=== PATIENT | male | born 2000 | race Two or more races ===

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

== ENCOUNTER 2019-04-02 14:50 | Emergency (ER) | payer MEDICAID ==
[2019-04-02] MEDS ORDERED: KETOROLAC TROMETHAMINE 60 MG/2 ML SDV IM ONE (15:44)
[2019-04-02] MEDS ORDERED: LIDOCAINE 5% (700 MG) TRANSDERMAL ADH..PATCH TP ONE (15:44)
--- NOTE | 2019-04-02 15:46 | ER Document Report ---
ED Medical Screen (RME) - General Chief Complaint: Back Pain Stated Complaint: BACK PAIN Time Seen by Provider: 04/02/19 15:39 Notes: Patient is a 18-year-old male who presents emergency department with a chief complaint of back pain. His pain started yesterday and he states it felt like he had pulled a muscle. 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 He denies any numbness or tingling. Denies any IV drug abuse. Denies any injury. Patient states that he dances a lot and sometimes gets back pain. He attempted to take naproxen which did help, but continues to have pain. Denies bladder or bowel incontinence. Exam: Tender mid back around paraspinous muscles. I have greeted and performed a rapid initial assessment of this patient. A comprehensive ED assessment and evaluation of the patient, analysis of test results and completion of medical decision making process will be conducted by an additional ED providers. TRAVEL OUTSIDE OF THE [place] IN LAST 30 DAYS: No - Related Data Allergies/Adverse Reactions: No Known Allergies Allergy (Verified 04/02/19 15:39) Past Medical History - Social History Chew tobacco use (# tins/day): No Frequency of alcohol use: Rare Drug Abuse: None Pulmonary Medical History: Reports: Hx Asthma Renal/ Medical History: Denies: Hx Peritoneal Dialysis - Immunizations Immunizations up to date: Yes Physical Exam - Vital signs Vitals: Temp Pulse Resp BP Pulse Ox 98.7 F 69 20 132/69 H 97 04/02/19 15:10 04/02/19 15:10 04/02/19 15:10 04/02/19 15:10 04/02/19 15:10 Course - Vital Signs Vital signs: Temp Pulse Resp BP Pulse Ox 98.7 F 69 20 132/69 H 97 04/02/19 15:10 04/02/19 15:10 04/02/19 15:10 04/02/19 15:10 04/02/19 15:10
--- NOTE | 2019-04-02 17:16 | ER Document Report ---
ED Neck/Back Problem - General Chief Complaint: Back Pain Stated Complaint: BACK PAIN Time Seen by Provider: 04/02/19 15:39 Primary Care Provider: [facility] [Provider Group] - Follow up in 1 week TRAVEL OUTSIDE OF THE [place] IN LAST 30 DAYS: No - HPI Notes: 18-year-old male to the emergency department with complaints of midthoracic back pain that began yesterday and is gotten worse. 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 He states that yesterday he was also dancing "hard" for about 1 hour. He states that his pain started after that. States it hurts more with big movements and big deep breath. He denies any nausea or vomiting. He states he has been getting some relief with the Toradol and Lidoderm patch applied in triage. He denies any numbness and tingling in his arms or in his legs. He denies any saddle paresthesia, fevers, bladder bowel incontinence, radiculopathy, weakness, IV drug abuse. - Related Data Allergies/Adverse Reactions: No Known Allergies Allergy (Verified 04/02/19 15:39) Past Medical History - General Information source: Patient - Social History Smoking Status: Never Smoker Chew tobacco use (# tins/day): No Frequency of alcohol use: Rare Drug Abuse: None Family History: Reviewed & Not Pertinent Patient has suicidal ideation: No Patient has homicidal ideation: No Pulmonary Medical History: Reports: Hx Asthma Renal/ Medical History: Denies: Hx Peritoneal Dialysis - Immunizations Immunizations up to date: Yes Review of Systems - Review of Systems Constitutional: denies: Chills, Fever EENT: No symptoms reported Cardiovascular: denies: Chest pain, Palpitations, Orthopnea, Dyspnea, Syncope, Dizziness, Lightheaded Respiratory: denies: Cough, Short of breath Gastrointestinal: denies: Abdominal pain, Diarrhea, Nausea, Vomiting Genitourinary: denies: Frequency, Flank pain, Incontinence, Retention Musculoskeletal: See HPI, Back pain Neurological/Psychological: No symptoms reported -: Yes All other systems reviewed and negative Physical Exam - Vital signs Vitals: Temp Pulse Resp BP Pulse Ox 98.7 F 69 20 132/69 H 97 04/02/19 15:10 04/02/19 15:10 04/02/19 15:10 04/02/19 15:10 04/02/19 15:10 Interpretation: Normal - General General appearance: Appears well, Alert - HEENT Head: Normocephalic, Atraumatic Eyes: Normal Pupils: PERRL - Respiratory Respiratory status: No respiratory distress Chest status: Nontender Breath sounds: Normal Chest palpation: Normal - Cardiovascular Rhythm: Regular Heart sounds: Normal auscultation Murmur: No - Back Back: Tender - there is TTP over the mid thoracic spine with noted paraspinal spasm. there is no midline TTP, there is no step off or deformity., CVA tenderness - Extremities General upper extremity: Normal inspection, Nontender, Normal color, Normal ROM, Normal temperature General lower extremity: Normal inspection, Nontender, Normal color, Normal ROM, Normal temperature, Normal weight bearing - Neurological Neuro grossly intact: Yes Cognition: Normal Orientation: AAOx4 [place] Coma Scale Eye Opening: Spontaneous [place] Coma Scale Verbal: Oriented [place] Coma Scale Motor: Obeys Commands [place] Coma Scale Total: 15 Speech: Normal Cranial nerves: Normal Cerebellar coordination: Normal. No: Gait ataxia Motor strength normal: LUE, RUE, LLE, RLE Sensory: Normal - Psychological Associated symptoms: Normal affect, Normal mood - Skin Skin Temperature: Warm Skin Moisture: Dry Skin Color: Normal Course - Re-evaluation Re-evalutation: Impression: Thoracic strain. Will send home with muscle relaxants and pain meds. Encouraged gentle stretching and applying heat. Encouraged to return if worse. Patient agrees with the plan. - Vital Signs Vital signs: Temp Pulse Resp BP Pulse Ox 97.9 F 65 18 135/73 H 100 04/02/19 17:40 04/02/19 17:40 04/02/19 17:40 04/02/19 17:40 04/02/19 17:40 Discharge - Discharge Clinical Impression: Strain of thoracic back region Condition: Stable Disposition: HOME, SELF-CARE Instructions: Muscle Strain ([facility]) Additional Instructions: TAKE MEDICINES PRESCRIBED. GENTLE STRETCHING. RETURN IF WORSENING PAIN. Prescriptions: Cyclobenzaprine HCl [Flexeril 10 mg Tablet] 10 mg PO TID #21 tablet Lidocaine [Lidoderm 5% (700 mg) Transdermal Patch] 1 patch TP DAILY #30 adh..patch Naproxen [Naprosyn 375 Mg Tablet] 375 mg PO BID #20 tablet Forms: Return to Work Referrals: [facility] [Provider Group] - Follow up in 1 week
[2019-04-02 17:40] VITALS: BP 135/73
== END 2019-04-02 17:39 | disposition home or self-care (01) ==
LOC: ER 14:50
DX: S29.012A Strain of muscle and tendon of back wall of thorax, initial encounter (principal); M54.9 Dorsalgia, unspecified; X50.3XXA Overexertion from repetitive movements, initial encounter
CPT/HCPCS: 99283; 96372; J1885; J3490

== ENCOUNTER → 2019-04-28 | Outpatient (CLI) | payer MEDICAID | LOC: OD 15:26 | PROVIDERS: ATTEND Nurse Practitioner Acute Care | DX: J02.9 Acute pharyngitis, unspecified (principal) | CPT/HCPCS: 87070 ==